=== PATIENT | male | born 1940 | race Caucasian/White ===

== ENCOUNTER 2022-12-01 11:52 | Emergency (ER) | payer OTHER ==
[2022-12-01] MEDS ORDERED: Sodium Chloride 0.9% 10 ML Syringe FLUSH PRN (12:10)
[2022-12-01 12:57] LABS: ANION GAP 13.9 meq/L (7-15); CHLORIDE,CL 100 mmol/L (98-107); ESTIMATED GFR 69 mL/min (>=60); SODIUM,NA 139 mmol/L (136-145)
[2022-12-01 13:01] LABS: CORONAVIRUS COVID-19 NAA NEGATIVE (NEGATIVE); RESPIRATORY SYNCYTIAL VIR NAA NEGATIVE (NEGATIVE)
[2022-12-01] MEDS: Sodium Chloride 0.9% 1,000 ML IV ONE (13:01)
[2022-12-01] MEDS: Ondansetron 4 MG Tab.DIS PO ONE (15:08)
== END 2022-12-01 15:27 ==
LOC: LL.ED 11:52
DX: K29.00 Acute gastritis without bleeding (principal); Z20.822 Contact with and (suspected) exposure to COVID-19; Z79.82 Long term (current) use of aspirin; Z79.899 Other long term (current) drug therapy
CPT/HCPCS: 0241U; 36415; 80053; 81001; 85025; 93005; 96360; 99284; 99284-25; A9270-GY; J7030

== ENCOUNTER 2024-07-21 06:13 | Emergency (ER) | payer OTHER ==
[2024-07-21 06:33] LABS: BASOPHILS ABSOLUTE AUTO 0.07 K/uL (0.00-0.20); BASOPHILS PERCENT AUTO 0.7 % (0.0-2.0); EOSINOPHILS PERCENT AUTO 6.4 % (0.0-5.0); HEMOGLOBIN 15.5 g/dL (13.1-16.8); LYMPHOCYTES ABSOLUTE AUTO 1.98 K/uL (0.50-3.50); LYMPHOCYTES PERCENT AUTO 21.1 % (10.0-50.0); MEAN CORPUSCULAR HEMOGLOBIN 29.3 pg (28.2-33.3); MEAN CORPUSCULAR HGB CONC 33.7 g/dL (31.7-36.0); MONOCYTES ABSOLUTE AUTO 1.19 K/uL (0.00-1.00); MONOCYTES PERCENT AUTO 12.7 % (2.0-14.0); NEUTROPHILS ABSOLUTE AUTO 5.53 K/uL (1.40-7.00); NEUTROPHILS PERCENT AUTO 59.1 % (45.0-80.0); PLATELET COUNT,PLT 184 K/uL (150-350); RED BLOOD CELL COUNT 5.29 M/uL (4.33-5.41); WHITE BLOOD CELL COUNT,WBC 9.4 K/uL (4.0-10.2)
[2024-07-21] MEDS ORDERED: Sodium Chloride 0.9% 10 ML Syringe FLUSH PRN (06:43)
[2024-07-21 06:55] LABS: ALANINE AMINOTRANSFERASE,ALT 23 U/L (12-78); ALBUMIN 2.9 g/dL (3.4-5.0); ALKALINE PHOSPHATASE 125 IU/L (46-116); ASPARTATE AMNIOTRANSFERASE,AST 17 U/L (15-37); BILIRUBIN TOTAL 0.6 mg/dL (0.2-1.0); BLOOD UREA NITROGEN,BUN 29 mg/dL (7-18); CARBON DIOXIDE,CO2 25.6 mmol/L (21.0-32.0); CHLORIDE,CL 101 mmol/L (98-107); CREATININE 1.17 mg/dL (0.51-1.17); GLUCOSE RANDOM 206 mg/dL (70-99); PROTEIN TOTAL,TP 7.3 g/dL (6.4-8.2); SODIUM,NA 136 mmol/L (136-145)
[2024-07-21 06:56] LABS: ANION GAP 14.4 meq/L (7-15); ESTIMATED GFR 61 mL/min (>=60)
[2024-07-21 07:04] LABS: PROTHROMBIN TIME 10.4 SEC (9.0-11.1)
[2024-07-21] MEDS: Sodium Chloride 0.9% 1,000 ML IV ONE (07:11)
[2024-07-21] MEDS ORDERED: Iopamidol 755 Mg/ML 100 ML Bottle ONE (07:40)
[2024-07-21] MEDS: Iopamidol 755 Mg/ML 100 ML Bottle IVPUSH ONE (08:00)
[2024-07-21] MEDS: Sodium Chloride 0.9% 1,000 ML IV SCH (09:49)
[2024-07-21 09:59] LABS: HEMATOCRIT 41.2 % (39.0-49.0); HEMOGLOBIN 13.5 g/dL (13.1-16.8)
== END 2024-07-21 11:13 ==
LOC: LL.ED 06:13 → SUPCPDRO 06:13 → LL.ED 11:13
DX: K92.2 Gastrointestinal hemorrhage, unspecified (principal); Z79.82 Long term (current) use of aspirin; Z79.899 Other long term (current) drug therapy
CPT/HCPCS: 36415; 74174; 80053; 83605; 83735; 85014; 85018; 85025; 85610; 86850; 86900; 86901; 96360; 96361; 99284; J7030; Q9967

== ENCOUNTER 2025-02-11 01:02 | Emergency (ER) | payer MEDICARE, OTHER ==
[2025-02-11] MEDS ORDERED: Naloxone 0.4 MG/ML SDV IVPUSH PRN (01:17)
[2025-02-11] MEDS: LORazepam 2 MG/ML SDV IVPUSH ONE (01:23)
[2025-02-11] MEDS: fentaNYL 50 MCG/ML SDV IVPUSH ONE ×2 (01:23→04:20)
[2025-02-11 01:32] LABS: BASOPHILS ABSOLUTE AUTO 0.08 K/uL (0.00-0.20); BASOPHILS PERCENT AUTO 1.2 % (0.0-2.0); EOSINOPHILS ABSOLUTE AUTO 0.22 K/uL (0.00-0.50); EOSINOPHILS PERCENT AUTO 3.2 % (0.0-5.0); IMMATURE GRAN ABSOLUTE AUTO 0.02 10^3/uL (0.00-0.04); IMMATURE GRAN PERCENT AUTO 0.3 % (0.0-0.4); LYMPHOCYTES ABSOLUTE AUTO 1.37 K/uL (0.50-3.50); MEAN CORPUSCULAR HEMOGLOBIN 29.3 pg (28.2-33.3); MEAN CORPUSCULAR HGB CONC 33.3 g/dL (31.7-36.0); MEAN CORPUSCULAR VOLUME 87.8 fL (84.0-98.0); MONOCYTES ABSOLUTE AUTO 0.87 K/uL (0.00-1.00); MONOCYTES PERCENT AUTO 12.7 % (2.0-14.0); NEUTROPHILS ABSOLUTE AUTO 4.28 K/uL (1.40-7.00); NEUTROPHILS PERCENT AUTO 62.6 % (45.0-80.0); PLATELET COUNT,PLT 168 K/uL (150-350); RED BLOOD CELL COUNT 5.47 M/uL (4.33-5.41); RED CELL DISTRIBUTION WIDTH 15.3 % (11.2-14.1); WHITE BLOOD CELL COUNT,WBC 6.8 K/uL (4.0-10.2)
[2025-02-11 01:34] LABS: INR 1.3
[2025-02-11] MEDS: Lidocaine 2% HCl 11 ML Jelly Filled Syringe TOP ONE (01:38)
[2025-02-11 01:52] LABS: APPEARANCE,URINE TURBID; OCCULT BLOOD,URINE LARGE (NEGATIVE); PROTEIN,URINE >=300 mg/dL (NEGATIVE)
[2025-02-11 01:54] LABS: COLOR,URINE RED
[2025-02-11 01:54] LABS: ALBUMIN 2.8 g/dL (3.4-5.0); BILIRUBIN TOTAL 0.5 mg/dL (0.2-1.0); CALCIUM 8.9 mg/dL (8.5-10.1); CREATININE 1.41 mg/dL (0.51-1.17); MAGNESIUM 2.1 mg/dL (1.8-2.4); POTASSIUM,K 4.3 mmol/L (3.5-5.1); PROTEIN TOTAL,TP 7.6 g/dL (6.4-8.2)
[2025-02-11 01:55] LABS: LACTIC ACID 2.7 mmol/L (0.4-2.0)
[2025-02-11 01:55] LABS: RBC,URINE PACKED /HPF
[2025-02-11 01:56] LABS: EST CRCL DRUG DOSING (CG) 33.32 mL/min
[2025-02-11] MEDS: Sodium Chloride 0.9% 10 ML Syringe FLUSH PRN (02:11)
[2025-02-11] MEDS: Iopamidol 612 MG/ML 100 ML Bottle IVPUSH ONE (02:29)
[2025-02-11] MEDS: Lactated Ringers 1,000 ML IV SCH (02:31)
== END 2025-02-11 04:23 ==
LOC: LL.ED 01:02
DX: R31.0 Gross hematuria (principal); R33.9 Retention of urine, unspecified; I48.91 Unspecified atrial fibrillation; E78.00 Pure hypercholesterolemia, unspecified; I10 Essential (primary) hypertension; E11.9 Type 2 diabetes mellitus without complications; Z86.73 Personal history of transient ischemic attack (TIA), and cerebral infarction without residual deficits; Z79.82 Long term (current) use of aspirin; Z79.899 Other long term (current) drug therapy; Z79.01 Long term (current) use of anticoagulants
CPT/HCPCS: 36415; 51702; 74177; 80053; 81001; 83605; 83735; 83880; 85025; 85610; 96374; 96375; 96376; 99284; 99284-25; A9270-GY; J2060; J3010; J7120; Q9967

== ENCOUNTER 2025-02-17 20:42 | Emergency (ER) | payer MEDICARE, OTHER ==
[2025-02-17 21:48] LABS: BASOPHILS ABSOLUTE AUTO 0.06 K/uL (0.00-0.20); BASOPHILS PERCENT AUTO 0.9 % (0.0-2.0); EOSINOPHILS ABSOLUTE AUTO 0.25 K/uL (0.00-0.50); EOSINOPHILS PERCENT AUTO 3.9 % (0.0-5.0); HEMATOCRIT 44.5 % (39.0-49.0); HEMOGLOBIN 14.9 g/dL (13.1-16.8); IMMATURE GRAN ABSOLUTE AUTO 0.02 10^3/uL (0.00-0.04); IMMATURE GRAN PERCENT AUTO 0.3 % (0.0-0.4); LYMPHOCYTES ABSOLUTE AUTO 1.12 K/uL (0.50-3.50); LYMPHOCYTES PERCENT AUTO 17.4 % (10.0-50.0); MEAN CORPUSCULAR HEMOGLOBIN 29.4 pg (28.2-33.3); MEAN CORPUSCULAR HGB CONC 33.5 g/dL (31.7-36.0); MEAN CORPUSCULAR VOLUME 87.9 fL (84.0-98.0); MONOCYTES ABSOLUTE AUTO 0.85 K/uL (0.00-1.00); MONOCYTES PERCENT AUTO 13.2 % (2.0-14.0); NEUTROPHILS ABSOLUTE AUTO 4.12 K/uL (1.40-7.00); NEUTROPHILS PERCENT AUTO 64.3 % (45.0-80.0); PLATELET COUNT,PLT 166 K/uL (150-350); RED BLOOD CELL COUNT 5.06 M/uL (4.33-5.41); WHITE BLOOD CELL COUNT,WBC 6.4 K/uL (4.0-10.2)
[2025-02-17 22:08] LABS: ALANINE AMINOTRANSFERASE,ALT 31 U/L (12-78); ALBUMIN 2.9 g/dL (3.4-5.0); ALKALINE PHOSPHATASE 127 IU/L (46-116); ANION GAP 7.2 meq/L (7-15); ASPARTATE AMNIOTRANSFERASE,AST 25 U/L (15-37); BILIRUBIN TOTAL 0.5 mg/dL (0.2-1.0); BLOOD UREA NITROGEN,BUN 18 mg/dL (7-18); CALCIUM 8.9 mg/dL (8.5-10.1); CARBON DIOXIDE,CO2 29.8 mmol/L (21.0-32.0); CHLORIDE,CL 100 mmol/L (98-107); CREATININE 1.41 mg/dL (0.51-1.17); GLUCOSE RANDOM 309 mg/dL (70-99); POTASSIUM,K 4.6 mmol/L (3.5-5.1); PROTEIN TOTAL,TP 7.6 g/dL (6.4-8.2); SODIUM,NA 137 mmol/L (136-145)
[2025-02-17 22:09] LABS: ESTIMATED GFR 49 mL/min (>=60)
[2025-02-17] MEDS: Finasteride 5 MG Tab PO ONE ×2 (22:51→22:52)
== END 2025-02-17 23:27 ==
LOC: LL.ED 20:42
DX: R31.0 Gross hematuria (principal); E11.42 Type 2 diabetes mellitus with diabetic polyneuropathy; I10 Essential (primary) hypertension; I48.91 Unspecified atrial fibrillation; E78.00 Pure hypercholesterolemia, unspecified; Z86.73 Personal history of transient ischemic attack (TIA), and cerebral infarction without residual deficits; Z79.899 Other long term (current) drug therapy; Z79.84 Long term (current) use of oral hypoglycemic drugs; Z79.82 Long term (current) use of aspirin; Z79.01 Long term (current) use of anticoagulants
CPT/HCPCS: 36415; 80053; 85025; 99284; A9270-GY